=== PATIENT | female | born 2000 | race Caucasian/White ===

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

== ENCOUNTER 2024-03-09 23:20 | Emergency (ER) | payer OTHER ==
[2024-03-09 23:27] VITALS: BP 105/58; PULSE 72; RESP 18; TEMP 98.3; BMI 35.4
[2024-03-10] MEDS ORDERED: FAMOTIDINE 20 MG TABLET ONE (01:12)
[2024-03-10] MEDS ORDERED: ACETAMINOPHEN 500 MG TABLET (FP) ONE (01:13)
[2024-03-10] MEDS: ACETAMINOPHEN 500 MG TABLET (FP) PO ONE (01:16)
[2024-03-10] MEDS: FAMOTIDINE 20 MG TABLET PO ONE (01:17)
[2024-03-10 01:24] LABS: BASO % 0.6 % (0-2.0); EOS % 2.1 % (0-4.5); HEMATOCRIT 38.1 % (32.4-45.2); HEMOGLOBIN 13.1 GM/dL (10.7-15.3); LYMPH % 44.3 % (8-40); MCH 29.7 pg (25.7-33.7); MCHC 34.5 g/dl (32.0-36.0); MEAN CELL VOLUME 86.3 fl (80-96); MEAN PLT VOLUME 8.8 fl (7.5-11.1); MONO % 9.2 % (3.8-10.2); NEUT % 43.8 % (42.8-82.8); PLATELET COUNT 222 10^3/uL (134-434); RBC 4.41 M/mm3 (3.60-5.2); RDW 12.8 % (11.6-15.6); WHITE BLOOD COUNT 10.4 K/mm3 (4.0-10.0)
[2024-03-10 01:54] LABS: POTASSIUM 3.7 mmol/L (3.5-5.1)
[2024-03-10 01:56] LABS: ALBUMIN 3.8 g/dl (3.4-5.0); CALCIUM 8.9 mg/dL (8.5-10.1)
[2024-03-10 01:57] LABS: BLOOD UREA NITROGEN 11.4 mg/dL (7-18); MAGNESIUM 2.1 mg/dL (1.8-2.4)
[2024-03-10 02:00] LABS: CREATININE 0.7 mg/dL (0.55-1.3)
[2024-03-10 02:01] LABS: BILIRUBIN,TOTAL 0.4 mg/dL (0.2-1); TOT PROT 7.3 g/dl (6.4-8.2)
== END 2024-03-10 03:57 | disposition home or self-care (01) ==
LOC: JER 23:20
DX: R10.13 Epigastric pain (principal); R10.11 Right upper quadrant pain
CPT/HCPCS: 36415; 76705-TC; 80053; 83690; 83735; 84703; 85025; 93005; 93010; 99285-25